=== PATIENT | female | born 1945 | race Caucasian/White ===

== ENCOUNTER 2019-04-16 12:00 | Inpatient (IN) | payer MEDICARE ==
[~2019-04-16] VITALS: Ht 167.6 cm; Wt 116.3 kg
[2019-04-16] MEDS ORDERED: LISI-538 PO (12:25)
[2019-04-16] MEDS ORDERED: VICT18IN SC (12:25)
[2019-04-16] MEDS ORDERED: MULTCAP PO (12:25)
[2019-04-16] MEDS ORDERED: LOPR1TAB6 PO (12:25)
[2019-04-16] MEDS ORDERED: ASPI81TA85 PO (12:25)
[2019-04-16] MEDS ORDERED: TRIA37.5 PO (12:25)
[2019-04-16] MEDS ORDERED: GABA-843 PO (12:25)
[2019-04-16] MEDS ORDERED: ATOR80TA59 PO (12:25)
[2019-04-16] MEDS ORDERED: FLUO40CA PO (12:25)
[2019-04-16 12:43] LABS: ABG BASE EXCESS -3.8 (-2.0-2.0); ABG HCO3 18.6 MEQ/L (22.0-26.0); ABG O2 SATURATION 93.8 % (95.0-99.0); ABG PARTIAL PRESSURE CO2 26.7 mmHg (35.0-45.0); ABG PARTIAL PRESSURE O2 69.1 mmHg (75.0-100.0); ABG STANDARD HCO3 21.3 MEQ/L (22.0-26.0); ABG TOTAL CO2 19.4 MEQ/L (23.0-31.0); ABG pH (ARTERIAL) 7.461 UNITS (7.350-7.450)
--- NOTE | 2019-04-16 12:46 | REP ---
Portable chest x-ray: Single view. History: Dyspnea and cough. No comparison study. Findings: EKG monitoring electrodes overlie the chest. Lungs are well inflated and clear. The pleural angles are sharp. The heart is near the upper range of normal in size. Pulmonary vasculature is not increased. There is no evidence of pleural effusion or pulmonary edema. No acute bony abnormality. Impression: Borderline heart size. Otherwise no active disease. Electronically Signed by Elliot Turner MD 04/16/2019 12:38 P
[2019-04-16 13:09] LABS: BASO % 0.2 % (0.0-1.0); EOS % 0.1 % (0.0-3.0); HEMATOCRIT 37.7 % (36.0-47.0); HEMOGLOBIN 12.2 g/dl (12.0-15.5); LYMPH # 0.7 10^3/uL (1.5-4.5); MEAN CORPUSCULAR HEMOGLOBIN 31.3 pg (27.0-33.0); MEAN CORPUSCULAR HGB CONC 32.4 g/dl (32.0-36.5); MEAN CORPUSCULAR VOLUME 96.7 fl (80.0-96.0); MONO # 0.5 10^3/uL (0.0-0.8); MONO % 4.1 % (0.0-5.0); NEUTROPHILS # 10.5 10^3/uL (1.8-7.7); PLATELET COUNT, AUTOMATED 215 10^3/uL (150-450); WHITE BLOOD COUNT 11.8 10^3/uL (4.0-10.0)
[2019-04-16 13:24] LABS: INR 1.09; PROTHROMBIN TIME 14.2 SECONDS (12.1-14.4)
[2019-04-16 13:52] LABS: ALBUMIN 3.1 GM/DL (3.2-5.2); BILIRUBIN,DIRECT 0.2 MG/DL (0.0-0.2); BILIRUBIN,TOTAL 0.7 MG/DL (0.2-1.0); CALCIUM LEVEL 8.8 MG/DL (8.8-10.2); CREATININE FOR GFR 1.03 MG/DL (0.55-1.30); GLOMERULAR FILTRATION RATE 56.2 (>39); MB/CK RELATIVE INDEX 1.88 (< OR =4); POTASSIUM SERUM 4.4 MEQ/L (3.5-5.1); THYROID STIMULATING HORMONE 0.818 uIU/ML (0.358-3.740); TOTAL PROTEIN 7.3 GM/DL (6.4-8.2); TROPONIN I 0.23 NG/ML (< 0.10)
[2019-04-16] MEDS ORDERED: ISOVUE-370 76% 100ML VIAL (Q9967) As Ordered ONE (14:49)
--- NOTE | 2019-04-16 15:41 | REP ---
Clinical: Acute chest pain and shortness of breath . Technique: Axial contrast enhanced images from the thoracic inlet to the upper abdomen using 100 ml Isovue 370 intravenous contrast material with coronal and sagittal re-formations. Findings: Extensive bilateral pulmonary emboli extend from the main pulmonary arteries into the bilateral lower lobe, right middle lobe and left upper lobe pulmonary arteries. No consolidation, effusion, or pneumothorax. Tracheobronchial tree is patent. Cardiomegaly is suggested without pericardial effusion. Limited upper abdomen demonstrates cholelithiasis and normal bilateral adrenal glands as well as banding at the gastroesophageal junction for hiatal hernia. Impression: 1. Extensive bilateral pulmonary emboli. 2. No acute consolidation or effusion. 3. Cholelithiasis. Electronically Signed by Daniel Ellington MD 04/16/2019 03:32 P
[2019-04-16] MEDS ORDERED: HEPARIN 1,000 UNITS/ML 10ML VIAL (FOR RADIOLOGY& DIALYSIS ONLY) As Ordered ONE ×2 (15:43→16:00)
[2019-04-16] MEDS ORDERED: BUPIVACAINE HCL 0.5% 10 ML VIAL As Ordered ONE (15:43)
[2019-04-16] MEDS ORDERED: LIDOCAINE 2% MDV 20 ML VIAL As Ordered ONE (15:43)
[2019-04-16] MEDS ORDERED: ISOVUE-300 61% 50ML VIAL (Q9967) As Ordered ONE (15:44)
[2019-04-16] MEDS ORDERED: ONDANSETRON 4MG/2ML VIAL (J2405) As Ordered ONE (15:59)
[2019-04-16] MEDS ORDERED: HEPARIN 25,000 UNITS/250 ML D5W BAG (100 UNITS/ML) As Ordered ONE (16:10)
[2019-04-16] MEDS ORDERED: ALTEPLASE 2 MG/2 ML VIAL (J2997 PER 1MG) IV ONE (16:15)
[2019-04-16] MEDS ORDERED: HEPARIN DRIP 25,000 UNITS in APPROPRIATE DILUENT 1 EA IV SCH (16:15)
[2019-04-16] MEDS ORDERED: ALTEPLASE RECOMBINANT 25 MG in NS 225 ML IV SCH (16:15)
[2019-04-16] MEDS ORDERED: METOPROLOL 5 MG/5 ML VIAL As Ordered ONE (16:17)
[2019-04-16 17:00] VITALS: BP 118/81
[2019-04-16 18:00] VITALS: BP 131/79
[2019-04-16] MEDS ORDERED: ACET-683 PO (19:01)
[2019-04-16] MEDS ORDERED: METO1TAB7 PO (19:01)
--- NOTE | 2019-04-17 05:55 | ECGEPIP ---
[facility] - ED Test Date: 2019-04-16 Pat Name: THOMAS AUSTIN Department: Room: - Gender: Female Business Development Officer: : 1945 Requested By: Barbara Alves Order Number: [id number] Reading MD: Mauro Cox Measurements Intervals [place] Rate: 79 P: 58 RI: 135 QRS: 17 QRSD: 99 T: 14 QT: 409 QTc: 470 Interpretive Statements SINUS RHYTHM POSSIBLE PRIOR INFERIOR INFARCT ST DEVIATION AND MODERATE T-WAVE ABNORMALITY, CONSIDER ANTERIOR ISCHEMIA NO PRIORS FOR COMPARISON Electronically Signed on 04-17-2019 5:55:13 EDT by Mauro Cox
== END 2019-04-16 17:29 | disposition other institution (70) | DRG 176 ==
LOC: M ED 12:00 → M ED INP 17:20 → M ED 17:20 → OBSVTOIN 17:20 → M ED INP 17:20
PROVIDERS: ADMIT Surgery Vascular Surgery; ATTEND Surgery Vascular Surgery
DX: I26.99 Other pulmonary embolism without acute cor pulmonale (principal)

== ENCOUNTER 2019-04-16 17:15 | Inpatient (IN) | payer MEDICARE ==
[~2019-04-16 17:15] MED LIST: ASPI81TA85 PO; ATOR80TA59 PO; FLUO40CA PO; GABA-843 PO; LISI-538 PO; LOPR1TAB6 PO; MULTCAP PO; TRIA37.5 PO; VICT18IN SC
[2019-04-16] MEDS: HEPARIN DRIP 25,000 UNITS in APPROPRIATE DILUENT 1 EA IV SCH (17:20)
[2019-04-16] MEDS ORDERED: ALTEPLASE RECOMBINANT 25 MG in NS 225 ML IV SCH (18:45)
[2019-04-16] MEDS ORDERED: METO1TAB7 PO (19:01)
[2019-04-16] MEDS ORDERED: ACET-683 PO (19:01)
[2019-04-16 19:12] LABS: HEMATOCRIT 44.7 % (36.0-47.0); HEMOGLOBIN 14.7 g/dl (12.0-15.5)
[2019-04-16 19:24] LABS: PARTIAL THROMBOPLASTIN TIME 95.1 SECONDS (25.4-37.6)
[2019-04-16 19:39] LABS: MB/CK RELATIVE INDEX 2.61 (< OR =4); TROPONIN I 0.38 NG/ML (< 0.10)
[2019-04-16 20:00] VITALS: BP 120/56
[2019-04-16] MEDS ORDERED: GLUCOSE 4 GM CHEW TABLET PO PRN (20:00)
[2019-04-16] MEDS ORDERED: GLUCAGON FOR INJ 1 MG VIAL (J1610) SC PRN (20:00)
[2019-04-16] MEDS ORDERED: DEXTROSE 50% 50 ML SYRINGE IV PRN (20:00)
[2019-04-16] MEDS: HumaLOG INSULIN (NovoLOG) PER UNIT SC SCH (21:00)
[2019-04-16] MEDS ORDERED: FLUoxetine 20 MG CAP PO SCH (21:00)
[2019-04-16] MEDS: GABAPENTIN 300 MG CAP PO SCH (21:50)
[2019-04-16] MEDS: FLUoxetine 20 MG CAP PO SCH (21:51)
[2019-04-17] VITALS: BP 119/62
[2019-04-17 00:16] LABS: PARTIAL THROMBOPLASTIN TIME 68.9 SECONDS (25.4-37.6)
[2019-04-17 00:27] LABS: HEMATOCRIT 38.4 % (36.0-47.0); HEMOGLOBIN 12.8 g/dl (12.0-15.5); MB/CK RELATIVE INDEX 2.89 (< OR =4); TROPONIN I 0.49 NG/ML (< 0.10)
[2019-04-17 04:00] VITALS: BP 132/70
[2019-04-17 05:43] LABS: HEMATOCRIT 36.7 % (36.0-47.0); HEMOGLOBIN 12.2 g/dl (12.0-15.5); MEAN CORPUSCULAR HEMOGLOBIN 31.4 pg (27.0-33.0); MEAN CORPUSCULAR HGB CONC 33.2 g/dl (32.0-36.5); MEAN CORPUSCULAR VOLUME 94.6 fl (80.0-96.0); PLATELET COUNT, AUTOMATED 199 10^3/uL (150-450); RED BLOOD COUNT 3.88 10^6/uL (4.00-5.40); WHITE BLOOD COUNT 11.8 10^3/uL (4.0-10.0)
[2019-04-17 05:56] LABS: PARTIAL THROMBOPLASTIN TIME 65.2 SECONDS (25.4-37.6)
[2019-04-17 06:15] LABS: GLOMERULAR FILTRATION RATE 58.2 (>39); MB/CK RELATIVE INDEX 2.78 (< OR =4); TROPONIN I 0.39 NG/ML (< 0.10)
[2019-04-17 07:32] VITALS: BP 140/62
[2019-04-17] MEDS: GABAPENTIN 300 MG CAP PO SCH ×3 (08:41→21:34)
[2019-04-17] MEDS: HumaLOG INSULIN (NovoLOG) PER UNIT SC SCH ×4 (08:41→21:00)
[2019-04-17] MEDS ORDERED: ACETAMINOPHEN TAB 650MG DOSE (2X325MG) PO PRN (09:30)
[2019-04-17 12:00] VITALS: BP 140/67
--- NOTE | 2019-04-17 12:15 | REP ---
BILATERAL LOWER EXTREMITY DUPLEX DOPPLER VENOUS ULTRASOUND: Real-time compression and duplex Doppler interrogation of bilateral lower extremity deep venous systems is performed. Bilaterally, common femoral, superficial femoral and popliteal veins are fully compressible with transducer pressure and demonstrate normal spontaneous and phasic flow without evidence of deep venous thrombosis. There is expected thrombus in the left greater saphenous vein from prior ablation. Thrombus begins 2.7 cm from the saphenofemoral junction. IMPRESSION: No evidence of deep vein thrombosis bilaterally. Electronically Signed by Ehsan Etienne MD 04/17/2019 04:16 P
--- NOTE | 2019-04-17 12:50 | HPEPDOC ---
[facility] Medical History & Physical Date of Admission April 16, 2019 Date of Service: April 17, 2019 History and Physical Vascular Surgery. Dr Sequeira. CC: SOB HPI: The patient is a 73-year-old female admitted to vascular surgery service for pulmonary embolism. The patient states she is a resident of [place] visiting friends in the area. She had recently traveled from her home in [place] to [place] for cruise returning 04/12/19. She then traveled by car from [place] to the [facility] to visit friends. She noted that she had rotator cuff surgery November 2018 and also left varicose vein surgery early 04/05. On 04/16/19 she was feeling weak in her lower extremities. She had reported feeling short of breath and was having cough for the 2 days prior to admission. CTA chest indicated extensive bilateral PE. Denies any fevers, chills, weakness, fatigue, PRUETT, CP, SOB, cough, palpitations, abdominal pain, N/V/D or changes in bowel or bladder habits. PMHx: Diabetes Dyslipidemia Hypertension Chronic back pain Anxiety Depression Venous insufficiency PSHX: LAP-BAND procedure Cataract surgery Hammertoe repair Hysterectomy Rotator cuff repair 12/06 Varicose vein surgery 04/05 SOCHX: Resides in: [place] friends in [place] Tobacco use: Former smoker ETOH: Denies Illicit Drugs: Denies FAMHX: Denies family history of bleeding or clotting disorder ROS: As noted in HPI, otherwise 11pt ROS of systems reviewed and unremarkable. PE: GEN: 73 yoF, appears stated age. No acute distress. Alert and oriented x 3. Pleasant, interactive. HEENT: Normocephalic, atraumatic. Sclera are nonicteric. Conjunctiva without injection. No facial asymmetry. Moist mucous membranes. CHEST: Regular rate and rhythm, +S1, +S2 LUNGS: Clear to auscultation bilaterally. No wheezes, rales, or rhonchi. Breathing appears symmetric and easy. No accessory muscle use. ABD: Round, soft, non-tender, non-distended. +Bowel sounds throughout. No rebound or guarding. No costovertebral angle tenderness. EXT: Pulses 2+ bilaterally dorsalis pedis and radial. Trace lower extremity edema appreciated, varicose veins noted. SKIN: [place], dry, warm. Capillary refill <2sec. No rashes. NEURO: Alert and oriented x 3. Cranial nerves III-XII are intact. No focal deficits appreciated. CXR: Borderline heart size. Otherwise no active disease. Electronically Signed by Elliot Turner MD 04/16/2019 12:38 P CTA: 1. Extensive bilateral pulmonary emboli. 2. No acute consolidation or effusion. 3. Cholelithiasis. Electronically Signed by Daniel Ellington MD 04/16/2019 03:32 P EKG: SINUS RHYTHM POSSIBLE PRIOR INFERIOR INFARCT ST DEVIATION AND MODERATE T-WAVE ABNORMALITY, CONSIDER ANTERIOR ISCHEMIA NO PRIORS FOR COMPARISON Electronically Signed on 04-17-2019 5:55:13 EDT by Mauro Cox A&P: The patient is a 73-year-old female admitted to vascular surgery service for pulmonary embolism. The patient states she is a resident of [place] visiting friends in the area. She had recently traveled from her home in [place] to [place] for cruise returning 04/12/19. She then traveled by car from [place] to the [facility] to visit friends. She noted that she had rotator cuff surgery November 2018 and also left varicose vein surgery early 04/05. On 04/16/19 she was feeling weak in her lower extremities. She had reported feeling short of breath and was having cough for the 2 days prior to admission. CTA chest indicated extensive bilateral PE. 1. Pulmonary embolism. Pulmonary angiogram 04/16/[address] Sequeira. Patient currently remains on heparin drip and alteplase as per protocol. Continue every 6 hours labs. Hypertension this a.m. 347. Monitor for bleeding. FOB pending. Echo pending. Ultrasound lower extremities pending. Hypercoagulable workup pending. Continue to closely monitor. 2. Elevated Troponin. Trop 0.49 last PM 0.39 this AM. Labs reviewed as per Dr Sequeira. Monitor. 3. DM. Consistent carbohydrate diet. Sliding scale insulin before meals at bedtime. 4. Anxiety/depression. Prozac. 5. Chronic back pain. Continue gabapentin 300 mg by mouth 3 times a day. Tylenol as needed. 6. Venous insufficiency. History of recent varicose vein procedure. Venous ultrasound lower extremities pending. Vital Signs Vital Signs Date Time Temp Pulse Resp B/P (MAP) Pulse Ox O2 Delivery O2 Flow Rate FiO2 04/17/19 07:32 97.6 67 20 140/62 (88) 100 Laboratory Data Labs 24H Laboratory Tests 2 04/16/19 18:52: Bedside Glucose (Misc Panel) 239H 04/16/19 19:00: Activated Partial Thromboplast Time 95.1H, Fibrinogen 394, Total Creatine Kinase 92, Creatine Kinase MB 2.0, Creatine Kinase MB Relative Index 2.61, Troponin I 0.38#H 04/16/19 20:52: Bedside Glucose (Misc Panel) 250H 04/16/19 23:48: Activated Partial Thromboplast Time 68.9H, Fibrinogen 361, Total Creatine Kinase 90, Creatine Kinase MB 3.0, Creatine Kinase MB Relative Index 2.89, Troponin I 0.49#H 04/17/19 05:29: Nucleated Red Blood Cells % (auto) 0.0, Activated Partial Thromboplast Time 65.2H, Fibrinogen 347, Anion Gap 8, Glomerular Filtration Rate 58.2, Blood Urea Nitrogen 26H, Creatinine 1.00, Sodium Level 138, Potassium Level 4.0, Chloride Level 106, Carbon Dioxide Level 24, Calcium Level 8.0L, Total Creatine Kinase 79, Creatine Kinase MB 2.0, Creatine Kinase MB Relative Index 2.78, Troponin I 0.39#H 04/17/19 11:33: Bedside Glucose (Misc Panel) 171H CBC/BMP Laboratory Tests 04/16/19 19:00 04/16/19 23:48 04/17/19 05:29 Red Blood Count 3.88 L, Mean Corpuscular Volume 94.6, Mean Corpuscular Hemoglobin 31.4, Mean Corpuscular Hemoglobin Concent 33.2, Red Cell Distribution Width 13.8, Calcium Level 8.0 L, Total Creatine Kinase 79 Home Medications Scheduled Aspirin (Aspir 81) 81 Mg Tablet.dr, 81 MG PO Q3RD Atorvastatin Calcium (Atorvastatin Calcium) 80 Mg Tablet, 80 MG PO DAILY Enoxaparin Sodium (Lovenox) 120 Mg/0.8 Ml Syringe, 120 MG SC Q12H Fluoxetine Hcl (Fluoxetine HCl) 40 Mg Capsule, 40 MG PO DAILY Gabapentin (Gabapentin) 300 Mg Capsule, 300 MG PO TID Liraglutide (Victoza 2-David) 0.6 Mg/0.1 Ml Pen.injctr, 0.6 MG SC DAILY Lisinopril (Lisinopril) 20 Mg Tablet, 20 TAB PO DAILY Metoprolol Succinate (Metoprolol Succinate) 50 Mg Tab.er.24h, 50 MG PO DAILY Multivitamin (Multivitamins) 1 Each Capsule, 1 CAP PO DAILY Triamterene/Hydrochlorothiazid (Triamterene-Hctz 37.5-25 mg Tb) 1 Each Tablet, 1 TAB PO DAILY Warfarin Sodium (Coumadin) 5 Mg Tablet, 5 MG PO DAILY@17 5mg daily until INR 04/23/19. Scheduled PRN Acetaminophen (Acetaminophen) 500 Mg Tablet, 1,000 MG PO Q6H PRN for PAIN Allergies Coded Allergies: Penicillins (Verified Allergy, Unknown, hives, 04/16/19) sulfacetamide (Verified Allergy, Unknown, hives, 04/16/19) A-FIB/CHADSVASC A-FIB History Current/History of A-Fib/PAF?: Nicole Caro April 17, 2019 12:50
[2019-04-17 12:52] LABS: HEMATOCRIT 32.9 % (36.0-47.0); HEMOGLOBIN 10.9 g/dl (12.0-15.5)
[2019-04-17 13:09] LABS: PARTIAL THROMBOPLASTIN TIME 53.3 SECONDS (25.4-37.6)
[2019-04-17] MEDS: ACETAMINOPHEN TAB 650MG DOSE (2X325MG) PO PRN ×2 (14:32→18:32)
[2019-04-17] MEDS: HEPARIN DRIP 25,000 UNITS in APPROPRIATE DILUENT 1 EA IV SCH (14:37)
[2019-04-17 16:00] VITALS: BP 143/67
[2019-04-17 19:15] VITALS: BP_SYST 142; BP_SYST 150; BP_DIAS 70
[2019-04-17] MEDS: FLUoxetine 20 MG CAP PO SCH (21:34)
[2019-04-17] MEDS: HEPARIN SOD (PORCINE) 5000 UNITS/ML VIAL IV PRN (21:36)
[2019-04-18 02:00] VITALS: BP 142/68
[2019-04-18 04:00] LABS: HEMATOCRIT 31.1 % (36.0-47.0); HEMOGLOBIN 10.2 g/dl (12.0-15.5); MEAN CORPUSCULAR HEMOGLOBIN 30.6 pg (27.0-33.0); MEAN CORPUSCULAR HGB CONC 32.8 g/dl (32.0-36.5); MEAN CORPUSCULAR VOLUME 93.4 fl (80.0-96.0); PLATELET COUNT, AUTOMATED 171 10^3/uL (150-450); RED BLOOD COUNT 3.33 10^6/uL (4.00-5.40); WHITE BLOOD COUNT 8.5 10^3/uL (4.0-10.0)
[2019-04-18 04:18] LABS: BLOOD UREA NITROGEN 16 MG/DL (7-18); CALCIUM LEVEL 8.2 MG/DL (8.8-10.2); CARBON DIOXIDE LEVEL 25 MEQ/L (21-32); CHLORIDE LEVEL 107 MEQ/L (98-107); CREATININE FOR GFR 0.77 MG/DL (0.55-1.30); GLOMERULAR FILTRATION RATE > 60.0 (>39); GLUCOSE, FASTING 141 MG/DL (70-100); POTASSIUM SERUM 3.7 MEQ/L (3.5-5.1); SODIUM LEVEL 141 MEQ/L (136-145)
[2019-04-18] MEDS: ACETAMINOPHEN TAB 650MG DOSE (2X325MG) PO PRN ×4 (05:54→20:52)
[2019-04-18 06:00] VITALS: BP 136/76
[2019-04-18] MEDS: GABAPENTIN 300 MG CAP PO SCH ×3 (08:42→20:52)
[2019-04-18] MEDS: HumaLOG INSULIN (NovoLOG) PER UNIT SC SCH ×4 (08:43→20:52)
[2019-04-18 10:00] VITALS: BP 176/79
--- NOTE | 2019-04-18 10:02 | ECHO ---
DATE OF PROCEDURE: 04/17/2019 REFERRING PHYSICIAN: Nicole Up. INDICATION: Pulmonary embolism. HEIGHT 167 cm. WEIGHT 116 kg. DIMENSIONS: IVS: 1.3 LV: 5.0 LVPW: 1.3 LA: 3.8 Aorta: 3.0 IVC: 1.9 Mitral E wave velocity: 85 A-wave: 85 E prime septal: 5.9 E prime lateral: 5.6 FINDINGS: The study is of rather difficult technical quality. Left ventricle is of normal size and normal systolic function. I estimate ejection fraction around 60-65%. Mild left ventricular hypertrophy is noted. No segmental wall motion abnormalities are appreciated. Right ventricle appears to be normal size and systolic function. Both atria appear at least mildly enlarged. I do not appreciate any evidence for right ventricular strain. Aortic valve is mildly sclerotic but it has three cusps and grossly preserved mobility. Mitral tricuspid and pulmonic valves appear normal. No pericardial effusion is noted. Inferior vena cava is normal size. Aortic root and aortic arch appear normal. Abdominal aorta was not seen. Doppler interrogation of aortic valve reveals minimal stenosis. Peak gradient is 18 and mean gradient 9 mmHg, no insufficiency is noted. There is no significant mitral stenosis or insufficiency and mild tricuspid insufficiency. Calculated pulmonary artery pressure was on upper limits of normal values. Pulmonic valve exhibits trace insufficiency as well. Mitral inflow pattern and tissue Doppler imaging of mitral annulus reveal likely grade 2 diastolic dysfunction. CONCLUSIONS: 1. Study is of fair technical quality corresponding to patient's body habitus. 2. Normal LV size with mild LVH and preserved LV systolic function, grade 2 diastolic dysfunction. 3. No hemodynamically significant valvular disease, mild aortic stenosis. 4. Likely normal central venous pressure and normal pulmonary artery pressure. COMMENTS: SBE prophylaxis is not recommended. Study is most consistent with mild hypertensive heart disease. [facility]
[2019-04-18] MEDS: HEPARIN DRIP 25,000 UNITS in APPROPRIATE DILUENT 1 EA IV SCH ×2 (12:14→14:40)
[2019-04-18] MEDS: HEPARIN SOD (PORCINE) 5000 UNITS/ML VIAL IV PRN (14:37)
[2019-04-18 15:27] VITALS: BP 141/70
[2019-04-18 18:00] VITALS: BP 183/83
[2019-04-18] MEDS: FLUoxetine 20 MG CAP PO SCH (20:52)
[2019-04-18 22:00] VITALS: BP 146/66
[2019-04-19] MEDS: ACETAMINOPHEN TAB 650MG DOSE (2X325MG) PO PRN ×4 (05:12→20:52)
[2019-04-19 05:55] LABS: HEMATOCRIT 28.5 % (36.0-47.0); HEMOGLOBIN 9.5 g/dl (12.0-15.5); MEAN CORPUSCULAR HEMOGLOBIN 31.8 pg (27.0-33.0); MEAN CORPUSCULAR HGB CONC 33.3 g/dl (32.0-36.5); MEAN CORPUSCULAR VOLUME 95.3 fl (80.0-96.0); PLATELET COUNT, AUTOMATED 176 10^3/uL (150-450); RED BLOOD COUNT 2.99 10^6/uL (4.00-5.40); WHITE BLOOD COUNT 7.8 10^3/uL (4.0-10.0)
[2019-04-19 06:00] VITALS: BP 148/72
[2019-04-19 06:12] LABS: BLOOD UREA NITROGEN 10 MG/DL (7-18); CARBON DIOXIDE LEVEL 27 MEQ/L (21-32); CHLORIDE LEVEL 109 MEQ/L (98-107); CREATININE FOR GFR 0.68 MG/DL (0.55-1.30); GLOMERULAR FILTRATION RATE > 60.0 (>39); GLUCOSE, FASTING 143 MG/DL (70-100); POTASSIUM SERUM 3.8 MEQ/L (3.5-5.1); SODIUM LEVEL 143 MEQ/L (136-145)
[2019-04-19] MEDS: HEPARIN DRIP 25,000 UNITS in APPROPRIATE DILUENT 1 EA IV SCH (06:31)
[2019-04-19] MEDS: GABAPENTIN 300 MG CAP PO SCH ×3 (08:33→20:47)
[2019-04-19] MEDS: HumaLOG INSULIN (NovoLOG) PER UNIT SC SCH ×4 (08:34→20:22)
[2019-04-19 17:17] VITALS: BP 168/76
[2019-04-19] MEDS: FLUoxetine 20 MG CAP PO SCH (20:47)
[2019-04-19 22:00] VITALS: BP 171/74
[2019-04-20] MEDS: HEPARIN DRIP 25,000 UNITS in APPROPRIATE DILUENT 1 EA IV SCH (00:19)
[2019-04-20 06:00] VITALS: BP 153/81
[2019-04-20] MEDS: ACETAMINOPHEN TAB 650MG DOSE (2X325MG) PO PRN ×4 (06:01→21:34)
[2019-04-20 06:22] LABS: HEMOGLOBIN 9.3 g/dl (12.0-15.5); MEAN CORPUSCULAR HGB CONC 33.2 g/dl (32.0-36.5); MEAN CORPUSCULAR VOLUME 93.3 fl (80.0-96.0); PLATELET COUNT, AUTOMATED 187 10^3/uL (150-450)
[2019-04-20 06:56] LABS: BLOOD UREA NITROGEN 8 MG/DL (7-18); CALCIUM LEVEL 8.5 MG/DL (8.8-10.2); CARBON DIOXIDE LEVEL 27 MEQ/L (21-32); CHLORIDE LEVEL 108 MEQ/L (98-107); CREATININE FOR GFR 0.67 MG/DL (0.55-1.30); GLOMERULAR FILTRATION RATE > 60.0 (>39); GLUCOSE, FASTING 143 MG/DL (70-100); POTASSIUM SERUM 3.8 MEQ/L (3.5-5.1); SODIUM LEVEL 142 MEQ/L (136-145)
[2019-04-20] MEDS: GABAPENTIN 300 MG CAP PO SCH ×3 (08:00→21:29)
[2019-04-20] MEDS: HumaLOG INSULIN (NovoLOG) PER UNIT SC SCH ×4 (08:01→21:00)
[2019-04-20] MEDS ORDERED: LOVE0.01 SC (09:51)
[2019-04-20] MEDS ORDERED: COUM1TAB17 PO (09:51)
[2019-04-20 10:00] LABS: INR 1.11; PROTHROMBIN TIME 14.5 SECONDS (12.1-14.4)
[2019-04-20] MEDS: ENOXAPARIN 120 MG/0.8 ML SYR (J1650) SC SCH ×2 (10:20→21:30)
[2019-04-20] MEDS: ATORVASTATIN 20 MG TAB PO SCH (10:24)
[2019-04-20] MEDS: METOPROLOL SUCC (TopROL XL) 50MG **XL** TAB PO SCH (10:24)
[2019-04-20] MEDS: DYAZIDE 37.5/25 CAP (TRIAM/HCTZ) PO SCH (11:03)
--- NOTE | 2019-04-20 12:41 | IPNPDOC ---
Date Seen The patient was seen on 04/20/19. Progress Note Vascular Surgery. Dr Sequeira. CC: SOB HPI: The patient is a 73-year-old female admitted to vascular surgery service for pulmonary embolism. The patient states she is a resident of [place] visiting friends in the area. She had recently traveled from her home in [place] to [place] for cruise returning 04/12/19. She then traveled by car from [place] to the [facility] to visit friends. She noted that she had rotator cuff surgery November 2018 and also left varicose vein surgery early 04/05. On 04/16/19 she was feeling weak in her lower extremities. She had reported feeling short of breath and was having cough for the 2 days prior to admission. CTA chest indicated extensive bilateral PE. Denies any fevers, chills, weakness, fatigue, PRUETT, CP, SOB, cough, palpitations, abdominal pain, N/V/D or changes in bowel or bladder habits. PMHx: Diabetes Dyslipidemia Hypertension Chronic back pain Anxiety Depression Venous insufficiency PSHX: LAP-BAND procedure Cataract surgery Hammertoe repair Hysterectomy Rotator cuff repair 12/06 Varicose vein surgery 04/05 PE: GEN: 73 yoF, appears stated age. Alert and oriented x 3. HEENT: Normocephalic, atraumatic. Sclera are nonicteric. Conjunctiva without injection. Moist mucous membranes. CHEST: Regular rate and rhythm, +S1, +S2 LUNGS: Clear to auscultation bilaterally. No wheezes, rales, or rhonchi. Breath ing appears symmetric and easy. ABD: Round, soft, non-tender, non-distended. +Bowel sounds throughout. No rebound or guarding. EXT: Pulses 2+ bilaterally dorsalis pedis and radial. Trace lower extremity edema appreciated, varicose veins noted. SKIN: [place], dry, warm. Capillary refill <2sec. No rashes. NEURO: Alert and oriented x 3. Cranial nerves III-XII are intact. No focal deficits appreciated. CXR: Borderline heart size. Otherwise no active disease. Electronically Signed by Elliot Turner MD 04/16/2019 12:38 P CTA: 1. Extensive bilateral pulmonary emboli. 2. No acute consolidation or effusion. 3. Cholelithiasis. Electronically Signed by Daniel Ellington MD 04/16/2019 03:32 P EKG: SINUS RHYTHM POSSIBLE PRIOR INFERIOR INFARCT ST DEVIATION AND MODERATE T-WAVE ABNORMALITY, CONSIDER ANTERIOR ISCHEMIA NO PRIORS FOR COMPARISON Electronically Signed on 04-17-2019 5:55:13 EDT by Mauro Cox TTE 1. Study is of fair technical quality corresponding to patient's body habitus. 2. Normal LV size with mild LVH and preserved LV systolic function, grade 2 diastolic dysfunction. 3. No hemodynamically significant valvular disease, mild aortic stenosis. 4. Likely normal central venous pressure and normal pulmonary artery pressure. COMMENTS: Study is most consistent with mild hypertensive heart disease. DD: Uzair Lundberg MD 04/18/19 0935 A&P: The patient is a 73-year-old female admitted to vascular surgery service for pulmonary embolism. The patient states she is a resident of [place] visiting friends in the area. She had recently traveled from her home in [place] to [place] for cruise returning 04/12/19. She then traveled by car from [place] to the [facility] to visit friends. She noted that she had rotator cuff surgery November 2018 and also left varicose vein surgery early 04/05. On 04/16/19 she was feeling weak in her lower extremities. She had reported feeling short of breath and was having cough for the 2 days prior to admission. CTA chest indicated extensive bilateral PE. 1. Pulmonary embolism.Pulmonary angiogram 04/16/[address] Sequeira. S/P alteplase as per protocol. Hgb 9.3. FOB x 1 positive. plan to D/C Heparin gtt. Start Lovenox and continue until INR therapeutic. Coumadin 10 mg po x 1 today then 5 mg daily. Monitor daily INR. PFS to assist with obtaining Lovenox as outpt. Coumadin and Lovenox teaching. 2. HTN. restart Home meds with hold parameters. 3. DM. Consistent carbohydrate diet. Sliding scale insulin before meals at bedtime. 4. Anxiety/depression. Prozac. 5. Chronic back pain. Continue gabapentin 300 mg by mouth 3 times a day. Tylenol as needed. 6. Venous insufficiency. History of recent varicose vein procedure. Venous ultrasound lower extremities neg for DVT. . VS, I&O, 24H, Fishbone Vital Signs/I&O Vital Signs Date Time Temp Pulse Resp B/P (MAP) Pulse Ox O2 Delivery O2 Flow Rate FiO2 04/20/19 10:24 77 167/92 04/20/19 06:00 97.6 18 99 I&O- Last 24 Hours up to 6 AM 04/20/19 06:00 Intake Total 1792 ml Output Total 1150 ml Balance 642 ml Laboratory Data 24H LABS Laboratory Tests 2 04/19/19 14:59: Activated Partial Thromboplast Time 79.1H 04/19/19 16:44: Bedside Glucose (Misc Panel) 136H 04/19/19 20:20: Bedside Glucose (Misc Panel) 193H 04/19/19 20:58: Activated Partial Thromboplast Time 76.6H 04/20/19 02:56: Activated Partial Thromboplast Time 82.2H 04/20/19 06:06: Nucleated Red Blood Cells % (auto) 0.0, Anion Gap 7L, Glomerular Filtration Rate > 60.0, Blood Urea Nitrogen 8, Creatinine 0.67, Sodium Level 142, Potassium Level 3.8, Chloride Level 108H, Carbon Dioxide Level 27, Calcium Level 8.5L 04/20/19 08:52: Activated Partial Thromboplast Time 66.0H, Prothrombin Time 14.5H, Prothromb Time International Ratio 1.11 04/20/19 11:28: Bedside Glucose (Misc Panel) 162H CBC/BMP Laboratory Tests 04/20/19 06:06 Red Blood Count 3.00 L, Mean Corpuscular Volume 93.3, Mean Corpuscular Hemoglobin 31.0, Mean Corpuscular Hemoglobin Concent 33.2, Red Cell Distribution Width 14.1, Calcium Level 8.5 L Microbiology Microbiology 04/18/19 Stool Occult Blood (REYES) - Final, Complete Nicole Up Apr 20, 2019 12:41
[2019-04-20 14:00] VITALS: BP 155/78
--- NOTE | 2019-04-20 16:37 | REP ---
Left lower extremity Duplex Doppler venous ultrasound: Real time compression and duplex Doppler interrogation of the left lower extremity deep venous system is performed. The left common femoral, superficial femoral and popliteal veins are fully compressible with transducer pressure and demonstrate normal spontaneous and phasic flow, without evidence of deep venous thrombosis. Impression: No evidence of deep venous thrombosis of the left lower extremity femoral popliteal venous system. Electronically Signed by Ehsan Etienne MD 04/20/2019 04:29 P
--- NOTE | 2019-04-20 16:39 | REP ---
Right upper extremity duplex Doppler venous ultrasound. Real time compression and duplex Doppler evaluation of the right upper extremity deep venous system is performed. The right subclavian, jugular, axillary, brachial, basilic and cephalic veins are fully compressible where accessible with transducer pressure, and demonstrate no intraluminal thrombus and normal venous waveforms. There is no evidence of deep venous thrombosis. Impression: No evidence of deep venous thrombosis of the right upper extremity deep vein system. Complex fluid is seen beneath the clavicle 1.8 x 2.1 x 6.5 cm, likely from recent rotator cuff surgery. Electronically Signed by Ehsan Etienne MD 04/20/2019 04:31 P
[2019-04-20] MEDS ORDERED: WARFARIN SOD 5 MG TAB PO ONE (17:00)
[2019-04-20] MEDS ORDERED: LISINOPRIL 20 MG TAB PO SCH (21:00)
[2019-04-20] MEDS: FLUoxetine 20 MG CAP PO SCH (21:29)
[2019-04-20 22:00] VITALS: BP 144/67
[2019-04-21] MEDS: ACETAMINOPHEN TAB 650MG DOSE (2X325MG) PO PRN ×2 (02:42→08:31)
[2019-04-21 06:00] VITALS: BP 126/59
[2019-04-21 06:53] LABS: HEMATOCRIT 28.1 % (36.0-47.0); HEMOGLOBIN 9.1 g/dl (12.0-15.5); MEAN CORPUSCULAR HEMOGLOBIN 31.6 pg (27.0-33.0); MEAN CORPUSCULAR HGB CONC 32.4 g/dl (32.0-36.5); MEAN CORPUSCULAR VOLUME 97.6 fl (80.0-96.0); PLATELET COUNT, AUTOMATED 191 10^3/uL (150-450); RED BLOOD COUNT 2.88 10^6/uL (4.00-5.40)
[2019-04-21 07:08] LABS: BLOOD UREA NITROGEN 10 MG/DL (7-18); CALCIUM LEVEL 8.2 MG/DL (8.8-10.2); CARBON DIOXIDE LEVEL 29 MEQ/L (21-32); CHLORIDE LEVEL 108 MEQ/L (98-107); CREATININE FOR GFR 0.72 MG/DL (0.55-1.30); GLOMERULAR FILTRATION RATE > 60.0 (>39); GLUCOSE, FASTING 137 MG/DL (70-100); POTASSIUM SERUM 4.3 MEQ/L (3.5-5.1); SODIUM LEVEL 142 MEQ/L (136-145)
[2019-04-21 07:11] LABS: INR 1.11; PROTHROMBIN TIME 14.4 SECONDS (12.1-14.4)
[2019-04-21 08:20] LABS: DRVV SCREEN 46.9 SEC
[2019-04-21 08:22] LABS: PTT LUPUS TYPE ANTICOAG SCREEN 1.1 (0-1.2)
[2019-04-21] MEDS: ENOXAPARIN 120 MG/0.8 ML SYR (J1650) SC SCH (08:30)
[2019-04-21] MEDS: HumaLOG INSULIN (NovoLOG) PER UNIT SC SCH (08:30)
[2019-04-21] MEDS: GABAPENTIN 300 MG CAP PO SCH (08:31)
[2019-04-21] MEDS: DYAZIDE 37.5/25 CAP (TRIAM/HCTZ) PO SCH (08:31)
[2019-04-21 08:32] VITALS: BP 122/55
[2019-04-21] MEDS: ATORVASTATIN 20 MG TAB PO SCH (08:32)
[2019-04-21] MEDS: METOPROLOL SUCC (TopROL XL) 50MG **XL** TAB PO SCH (08:32)
--- NOTE | 2019-04-21 11:33 | DS.PDOC ---
Discharge Summary General Date of Admission April 16, 2019 at 17:15 Date of Discharge 04/21/19 Discharge Summary PROCEDURES PERFORMED DURING STAY: Pulmonary angiogram 04/16/19, S/P alteplase as per protocol/S/P IVC filter per Dr. Sequeira. ADMITTING DIAGNOSES: Extensive bilateral pulmonary emboli. DISCHARGE DIAGNOSES: Extensive bilateral pulmonary emboli. Diabetes Dyslipidemia Hypertension Chronic back pain Anxiety Depression Venous insufficiency COMPLICATIONS/CHIEF COMPLAINT: SOB/cough HISTORY OF PRESENT ILLNESS: The patient is a 73-year-old female admitted to vascular surgery service for pulmonary embolism. The patient states she is a resident of [place] visiting friends in the area. She had recently traveled from her home in [place] to [place] for cruise returning 04/12/19. She then traveled by car from [place] to the [facility] to visit friends. She noted that she had rotator cuff surgery November 2018 and also left varicose vein surgery early 04/05. On 04/16/19 she was feeling weak in her lower extremities. She had reported feeling short of breath and was having cough for the 2 days prior to admission. CTA chest indicated extensive bilateral PE. HOSPITAL COURSE: The pt underwent Pulmonary angiogram 04/16/19, S/P alteplase as per protocol/ S/P IVC filter per Dr. Sequeira. Alteplase d/cd 04/19/19. Heparin gtt d/cd 04/20/19. Pt was changed to Lovenox SQ Q12 and started on Coumadin AC. Pt was given 10 mg po x 1 04/20/19. Coumadin teaching and Lovenox teaching completed. The pt is from [place] therefore plan for FU with her physician there in 4-7 days. DISCHARGE MEDICATIONS: Please see below. ALLERGIES: Please see below. PHYSICAL EXAMINATION ON DISCHARGE: VITAL SIGNS: Please see below. GEN: 73 yoF, appears stated age. No acute distress. Alert and oriented x 3. Pleasant, interactive. HEENT: Normocephalic, atraumatic. Sclera are nonicteric. Conjunctiva without injection. No facial asymmetry. Moist mucous membranes. CHEST: Regular rate and rhythm, +S1, +S2 LUNGS: Clear to auscultation bilaterally. No wheezes, rales, or rhonchi. Breathing appears symmetric and easy. ABD: Round, soft, non-tender, non-distended. +Bowel sounds throughout. EXT: Pulses 2+ bilaterally dorsalis pedis and radial. Trace lower extremity edema appreciated, varicose veins noted. SKIN: [place], dry, warm. Capillary refill <2sec. No rashes. NEURO: Alert and oriented x 3. Cranial nerves III-XII are intact. No focal deficits appreciated. LABORATORY DATA: Please see below. IMAGING: CXR: Borderline heart size. Otherwise no active disease. Electronically Signed by Elliot Turner MD 04/16/2019 12:38 P CTA: 1. Extensive bilateral pulmonary emboli. 2. No acute consolidation or effusion. 3. Cholelithiasis. Electronically Signed by Daniel Ellington MD 04/16/2019 03:32 P TTE 1. Study is of fair technical quality corresponding to patient's body habitus. 2. Normal LV size with mild LVH and preserved LV systolic function, grade 2 diastolic dysfunction. 3. No hemodynamically significant valvular disease, mild aortic stenosis. 4. Likely normal central venous pressure and normal pulmonary artery pressure. COMMENTS: Study is most consistent with mild hypertensive heart disease. DD: Uzair Lundberg MD 04/18/19 0902 ACTIVITY: As tolerated. DIET: Regular DISCHARGE PLAN: Discharge home today. Coumadin 5 mg 04/21 and 04/22/19. PT/INR 04/23/19. Further instructions pending result. Lab order provided to pt. with copy of result to PCP. recommend to continue Lovenox until INR therapeutic. FU with PCP in 4-7 days. Pt verbalizes understanding and agreement. ITEMS TO FOLLOWUP ON ON OUTPATIENT: 1. PT/INR 04/23/19 with further instructions pending results. Have confirmed PCP will monitor and plan to fax result to that office. If needed Pt can call Dr Sequeira's office for instructions if needed. DISCHARGE CONDITION: Stable. TIME SPENT ON DISCHARGE: Greater than 30 minutes. Vital Signs/I&Os Vital Signs Date Time Temp Pulse Resp B/P (MAP) Pulse Ox O2 Delivery O2 Flow Rate FiO2 04/21/19 08:32 64 122/55 04/21/19 06:00 98.2 18 97 I&O- Last 24 Hours up to 6 AM 04/21/19 06:00 Intake Total 1770 ml Output Total 1625 ml Balance 145 ml Laboratory Data Labs 24H Laboratory Tests 2 04/20/19 11:28: Bedside Glucose (Misc Panel) 162H 04/20/19 16:28: Bedside Glucose (Misc Panel) 115H 04/20/19 19:46: Bedside Glucose (Misc Panel) 177H 04/21/19 06:33: Nucleated Red Blood Cells % (auto) 0.0, Anion Gap 5L, Glomerular Filtration Rate > 60.0, Blood Urea Nitrogen 10, Creatinine 0.72, Sodium Level 142, Potassium Level 4.3, Chloride Level 108H, Carbon Dioxide Level 29, Calcium Level 8.2L 04/21/19 06:34: Prothrombin Time 14.4, Prothromb Time International Ratio 1.11 CBC/BMP Laboratory Tests 04/21/19 06:33 Red Blood Count 2.88 L, Mean Corpuscular Volume 97.6 H, Mean Corpuscular Hemoglobin 31.6, Mean Corpuscular Hemoglobin Concent 32.4, Red Cell Distribution Width 14.4, Calcium Level 8.2 L FSBS Laboratory Tests Test 04/20/19 11:28 04/20/19 16:28 04/20/19 19:46 Range/Units Bedside Glucose (Misc Panel) 162 115 177 83-110 MG/DL Microbiology Microbiology 04/18/19 Stool Occult Blood (REYES) - Final, Complete Discharge Medications Scheduled Atorvastatin Calcium (Atorvastatin Calcium) 80 Mg Tablet, 80 MG PO DAILY, (Reported) Enoxaparin Sodium (Lovenox) 120 Mg/0.8 Ml Syringe, 120 MG SC Q12H Fluoxetine Hcl (Fluoxetine HCl) 40 Mg Capsule, 40 MG PO DAILY, (Reported) Gabapentin (Gabapentin) 300 Mg Capsule, 300 MG PO TID, (Reported) Liraglutide (Victoza 2-David) 0.6 Mg/0.1 Ml Pen.injctr, 0.6 MG SC DAILY, (Reported) Lisinopril (Lisinopril) 20 Mg Tablet, 20 TAB PO DAILY, (Reported) Metoprolol Succinate (Metoprolol Succinate) 50 Mg Tab.er.24h, 50 MG PO DAILY, (Reported) Multivitamin (Multivitamins) 1 Each Capsule, 1 CAP PO DAILY, (Reported) Triamterene/Hydrochlorothiazid (Triamterene-Hctz 37.5-25 mg Tb) 1 Each Tablet, 1 TAB PO DAILY, (Reported) Warfarin Sodium (Coumadin) 5 Mg Tablet, 5 MG PO DAILY@17 5mg daily until INR 04/23/19. Scheduled PRN Acetaminophen (Acetaminophen) 500 Mg Tablet, 1,000 MG PO Q6H PRN for PAIN, (Reported) Allergies Coded Allergies: Penicillins (Verified Allergy, Unknown, hives, 04/16/19) sulfacetamide (Verified Allergy, Unknown, hives, 04/16/19) Nicole Up Apr 21, 2019 11:33
[2019-04-21] MEDS ORDERED: WARFARIN SOD 5 MG TAB PO SCH (17:00)
[2019-04-23 00:08] LABS: ANTI THROMBIN 3 ANTIGEN IMMUNO 66 % (72-124); ANTI THROMBIN 3 FUNCT ACTIVITY 83 % (75-135); ANTINUCLEAR ANTIBODIES DIRECT Negative (Negative); CARDIOLIPIN IGA ANTIBODY <9 APL U/mL (0-11); CARDIOLIPIN IGG ANTIBODY <9 GPL U/mL (0-14); CARDIOLIPIN IGM ANTIBODY <9 MPL U/mL (0-12); HOMOCYST(E)INE SERUM 12.4 umol/L (0.0-15.0); PROTEIN C ANTIGEN 80 % (60-150); PROTEIN S ANTIGEN FREE 60 % (57-157); PROTEIN S ANTIGEN TOTAL 82 % (60-150)
== END 2019-04-21 12:25 | disposition home or self-care (01) | DRG 168 ==
LOC: M ICU 17:15 → M MSPAV 04-17 19:00
PROVIDERS: ADMIT Surgery Vascular Surgery; ATTEND Surgery Vascular Surgery
PROC: 06H03DZ Insertion of Intraluminal Device into Inferior Vena Cava, Percutaneous Approach (ICD-10-PCS; principal; 2019-04-16)
PROC: 3E043KZ Introduction of Other Diagnostic Substance into Central Vein, Percutaneous Approach (ICD-10-PCS; 2019-04-16)
DX: I26.99 Other pulmonary embolism without acute cor pulmonale (principal); E11.9 Type 2 diabetes mellitus without complications; E78.5 Hyperlipidemia, unspecified; I10 Essential (primary) hypertension; F41.9 Anxiety disorder, unspecified; F32.9 Major depressive disorder, single episode, unspecified; I87.2 Venous insufficiency (chronic) (peripheral); M54.9 Dorsalgia, unspecified; Z87.891 Personal history of nicotine dependence; Z79.82 Long term (current) use of aspirin; Z79.01 Long term (current) use of anticoagulants; Z79.899 Other long term (current) drug therapy; Z88.0 Allergy status to penicillin; Z88.2 Allergy status to sulfonamides